=== PATIENT | male | born 1940 | race Caucasian/White ===

== ENCOUNTER 2019-06-27 01:32 | Emergency (ER) | payer BC ==
[~2019-06-27] VITALS: Ht 185.4 cm; Wt 64.9 kg
[2019-06-27 01:50] LABS: BASO % 0.2 % (0.0-1.0); HEMATOCRIT 41.6 % (42.0-52.0); HEMOGLOBIN 14.7 g/dl (13.5-17.5); LYMPH # 1.2 10^3/uL (1.5-4.5); MEAN CORPUSCULAR HEMOGLOBIN 31.1 pg (27.0-33.0); MEAN CORPUSCULAR HGB CONC 35.3 g/dl (32.0-36.5); MEAN CORPUSCULAR VOLUME 87.9 fl (80.0-96.0); MONO # 0.6 10^3/uL (0.0-0.8); MONO % 4.2 % (0.0-5.0); NEUTROPHILS % 87.2 % (36.0-66.0); PLATELET COUNT, AUTOMATED 180 10^3/uL (150-450); RED BLOOD COUNT 4.73 10^6/uL (4.30-6.10); WHITE BLOOD COUNT 14.9 10^3/uL (4.0-10.0)
--- NOTE | 2019-06-27 01:58 | REPVR ---
EXAM: CT Head Without Contrast EXAM DATE/TIME: 06/27/2019 1:39 AM CLINICAL HISTORY: 79 years old, male; Weakness, extremity; Left; Additional info: S/s possible stroke TECHNIQUE: Imaging protocol: Computed tomography images of the head without contrast. Radiation optimization: All CT scans at this facility use at least one of these dose optimization techniques: automated exposure control; mA and/or kV adjustment per patient size (includes targeted exams where dose is matched to clinical indication); or iterative reconstruction. Other technique: STROKE PROTOCOL was implemented. COMPARISON: No relevant prior studies available. FINDINGS: Brain: There are several areas of hypodense edema within the right basal ganglia, concerning for acute or subacute infarcts. Intracranial masses cannot be excluded. There is extension of hypodense edema to the right shook radiata. Mild mass-effect is visualized on the frontal horn of the right lateral ventricle. There are periventricular foci of white matter hypodensity, likely representing small vessel ischemic disease in a patient this age. The acuity of the white matter disease is indeterminate. There is mild prominence of the frontal sulci, compatible with atrophy. No acute intracranial hemorrhage is seen. Midline shift: There is no midline shift. Ventricles: See Brain Finding. Bones/joints: The calvarium demonstrates no evidence for a depressed fracture. Sinuses: Visualized sinuses are unremarkable. No fluid levels. Mastoid air cells: Minimal effusions within the left mastoid air cells. Soft tissues: Unremarkable. Vasculature: Intracranial atherosclerosis visualized. IMPRESSION: 1. There are several areas of hypodense edema within the right basal ganglia, concerning for acute or subacute infarcts. Intracranial masses cannot be excluded. There is extension of hypodense edema to the right shook radiata. Mild mass-effect is visualized on the frontal horn of the right lateral ventricle. Correlation with MRI is recommended. 2. No acute intracranial hemorrhage. 3. There are periventricular foci of white matter hypodensity, likely representing small vessel ischemic disease in a patient this age. 4. Mild atrophy. ASSESSMENT: ASPECTS ([place] Stroke Program Early CT Score) is 7. Electronically signed by: Francis Medina On 06/27/2019 01:58:07 AM
[2019-06-27 02:02] LABS: INR 1.23; PROTHROMBIN TIME 15.2 SECONDS (11.8-14.0)
[2019-06-27 02:03] LABS: PARTIAL THROMBOPLASTIN TIME 27.5 SECONDS (25.0-38.4)
[2019-06-27 02:17] LABS: BLOOD UREA NITROGEN 21 MG/DL (7-18); CALCIUM LEVEL 9.3 MG/DL (8.8-10.2); CARBON DIOXIDE LEVEL 24 MEQ/L (21-32); CHLORIDE LEVEL 107 MEQ/L (98-107); CK-MB VALUE MASS 2.6 NG/ML (<3.6); CPK CREATINE PHOSPHOKINASE 108 U/L (39-308); CREATININE FOR GFR 1.13 MG/DL (0.70-1.30); GLOMERULAR FILTRATION RATE > 60.0 (>42); GLUCOSE, FASTING 126 MG/DL (70-100); MB/CK RELATIVE INDEX 2.41 (< OR =4); POTASSIUM SERUM 4.1 MEQ/L (3.5-5.1); SODIUM LEVEL 140 MEQ/L (136-145); TROPONIN I < 0.02 NG/ML (< 0.10)
[2019-06-27 02:46] VITALS: BP 191/88
--- NOTE | 2019-06-27 08:16 | REP ---
Clinical: Acute cerebrovascular accident . Comparison: None . Findings: The mediastinum and cardiac silhouette are stable and within normal limits for portable technique. The lung oconnell are clear without acute consolidation, effusion, or pneumothorax. Skeletal structures are intact. Impression: No acute cardiopulmonary process appreciated. Electronically Signed by Yoni Rordiguez MD 06/27/2019 08:07 A
--- NOTE | 2019-06-27 08:17 | ECGEPIP ---
[facility] - ED Test Date: 2019-06-27 Pat Name: KARINA ELISE Department: Room: - Gender: Male Health Information Director: berna : 1940 Requested By: YONNY Be Order Number: [id number] Reading MD: Samanta Carrion Measurements Intervals Dumont Rate: 86 P: 86 MN: 175 QRS: 29 QRSD: 90 T: 78 QT: 368 QTc: 442 Interpretive Statements NSR PACS PVCS POSSIBLE LEFT ATRIAL ENLARGEMENT NONSPECIFIC ST & T-WAVE ABNORMALITY ABNORMAL RHYTHM ECG No prior Electronically Signed on 06-27-2019 8:17:29 EDT by Samanta Carrion
== END 2019-06-27 03:32 | disposition short-term general hospital (02) ==
LOC: M ED 01:32
DX: I63.9 Cerebral infarction, unspecified (principal); Z79.899 Other long term (current) drug therapy; Z79.01 Long term (current) use of anticoagulants

== ENCOUNTER 2019-06-30 12:18 | Inpatient (IN) | payer MEDICARE, BC ==
[~2019-06-30] VITALS: Ht 177.8 cm; Wt 64.8 kg
[2019-06-30] MEDS ORDERED: MIRALAX *UNIT DOSE* 17GM PACKET PO PRN (14:30)
[2019-06-30] MEDS ORDERED: ACETAMINOPHEN TAB 650MG DOSE (2X325MG) PO PRN (14:30)
[2019-06-30] MEDS ORDERED: traZODone 25MG PER 1/2 TABLET PO PRN (14:30)
[2019-06-30] MEDS ORDERED: SENNA 8.6 MG TAB (SENOKOT) PO PRN (14:30)
[2019-06-30] MEDS ORDERED: ASPI81CH33 PO (14:56)
[2019-06-30] MEDS ORDERED: ATOR40TA75 PO (14:56)
[2019-06-30] MEDS ORDERED: RA S8.6T3 PO (14:56)
[2019-06-30] MEDS ORDERED: ELIQ5TAB PO (14:56)
[2019-06-30] MEDS ORDERED: LOVE1INJ SC (14:56)
[2019-06-30] MEDS ORDERED: CVS50CAP PO (14:56)
[2019-06-30] MEDS ORDERED: METO1TAB32 PO (14:56)
[2019-06-30 15:00] VITALS: BP 159/79
--- NOTE | 2019-06-30 15:56 | CR.PDOC ---
General Date of Consultation: Jun 30, 2019 Referring Provider: LAUREN BRANDT MD Attending Physician: KIRA CISNEROS MD Consultation REASON FOR CONSULTATION/CHIEF COMPLAINT: Medical management. HISTORY OF PRESENT ILLNESS: Alexandra Monroy is a 79-year-old male, past medical history significant for hypertension, atrial fibrillation not on anticoagulation therapy, who presented to this facility 3 days ago on account of sudden onset left-sided flaccidity and facial droop. CT brain showed several areas of hypodensity edema within the right basal ganglia concerning for acute or subacute infarcts. There was extension of hypodensity edema to the right coronary radiata. There was also mild mass effect visualized in the frontal horn of the right lateral ventricle. Patient was emergently transferred to [facility] for further assessment and management. At that facility. MRI showed hemorrhagic conversion. Initially started on aspirin, with new findings of hemorrhagic conversion that was discontinued. Patient had a 2-D echocardiogram at that facility, which showed reduced ejection fraction of 40-45%. Left-sided weakness and flaccidity persisted for which he was discharged to this facility for rehabilitation. On assessment. Patient reports he has not been seen by a medical provider since 1987. He did not feel he had any medical problems. He denies chest pain, shortness of breath. At discharge, it was recommended patient be started on anticoagulation therapy with apixaban 5 mg twice a day 07/04/2019. ALLERGIES: Please see below. HOME MEDICATIONS: Please see below. PAST MEDICAL HISTORY: 1. Hypertension 2. Atrial fibrillation PAST SURGICAL HISTORY: 1. Tonsillectomy FAMILY HISTORY: Denies any family history SOCIAL HISTORY: Marital status and/or living arrangements: Employment: Retired Tobacco use: Denies ETOH: Occasional Illicit drug use: Denies IV drug use: Denies REVIEW OF SYSTEMS:A pertinent 10 point review of systems is completed, negative except as stated in the history of present illness PHYSICAL EXAMINATION: VITAL SIGNS: Please see below. GENERAL: NAD SKIN : Warm, dry intact HEENT: Atraumatic, normocephalic, PERRL, moist mucous membrane CARDIOVASCULAR: Regular rate and rhythm, S1S2, no JVD, no edema, distal pulses + palpable RESP: CTAB, no accessory muscle use noted ABDOMEN: BS+ non distended non tender MS: no joint deformities NEURO: Alert and oriented x 3, left side flaccid,facial droop CN2-12 grossly intact PSYCH: no anxiety or agitation, appropriate mood and affect. LABORATORY DATA: Please see below. ASSESSMENT/PLAN: 1. Acute Intracranial Hemorrhage -continue aspirin, statin, betablocker -rehabilitation per primary team 2.Atrial Fibrillation -rate controlled -continue toprol for rate control -anticoagulation therapy with Eliquis 07/04/2019 3. Cardiomyopathy of unclear etiology -with atrial fibrillation -referral to cardiology for ischemic evaluation at discharge 4. Hypertension -stable, controlled Vital Signs/I&O Vital Signs Date Time Temp Pulse Resp B/P (MAP) Pulse Ox O2 Delivery O2 Flow Rate FiO2 06/30/19 15:00 97.5 54 18 159/79 (105) 97 Allergies Coded Allergies: No Known Allergies (Unverified , 06/27/19) Home Medications Scheduled Apixaban (Eliquis) 5 Mg Tablet, 5 MG PO BID, (Reported) DUE TO BEGIN 07/04/19 Aspirin (Aspirin) 81 Mg Tab.chew, 81 MG PO DAILY, (Reported) TO STOP TAKING 07/03/19 AND BEGIN ELIQUIS 07/04/19 Atorvastatin Calcium (Atorvastatin Calcium) 40 Mg Tablet, 40 MG PO DAILY, (Reported) Docusate Sodium (Stool Softener) 50 Mg Capsule, 50 MG PO DAILY, (Reported) Enoxaparin Sodium (Lovenox) 40 Mg/0.4 Ml Syringe, 40 MG SC DAILY, (Reported) Metoprolol Succinate (Metoprolol Succinate) 25 Mg Tab.er.24h, 25 MG PO DAILY, (Reported) Sennosides (Senna Lax) 8.6 Mg Tablet, 8.6 MG PO DAILY, (Reported) CHEL HE Jun 30, 2019 15:56
[2019-06-30] MEDS: FLUoxetine 20 MG CAP PO SCH (16:07)
[2019-06-30 20:00] VITALS: BP 175/77
[2019-06-30] MEDS: SENNA 8.6 MG TAB (SENOKOT) PO SCH (20:43)
[2019-06-30] MEDS: DOCUSATE SODIUM 100 MG CAP PO SCH (20:43)
[2019-06-30] MEDS ORDERED: DOCUSATE SODIUM 100 MG CAP PO SCH (21:00)
[2019-07-01 06:00] VITALS: BP 160/72
[2019-07-01 06:35] LABS: BASO % 0.2 % (0.0-1.0); EOS # 0.2 10^3/uL (0.0-0.50); EOS % 2.2 % (0.0-3.0); HEMOGLOBIN 12.6 g/dl (13.5-17.5); LYMPH # 1.1 10^3/uL (1.5-4.5); MEAN CORPUSCULAR HEMOGLOBIN 31.3 pg (27.0-33.0); MEAN CORPUSCULAR VOLUME 87.1 fl (80.0-96.0); MONO # 0.9 10^3/uL (0.0-0.8); MONO % 10.5 % (0.0-5.0); NEUTROPHILS % 72.9 % (36.0-66.0); PLATELET COUNT, AUTOMATED 159 10^3/uL (150-450); RED BLOOD COUNT 4.02 10^6/uL (4.30-6.10); WHITE BLOOD COUNT 8.2 10^3/uL (4.0-10.0)
[2019-07-01 06:38] VITALS: BP 142/98
[2019-07-01 07:00] LABS: ALBUMIN 3.1 GM/DL (3.2-5.2); ALT/SGPT 16 U/L (12-78); BILIRUBIN,TOTAL 0.7 MG/DL (0.2-1.0); BLOOD UREA NITROGEN 19 MG/DL (7-18); CALCIUM LEVEL 8.6 MG/DL (8.8-10.2); CARBON DIOXIDE LEVEL 25 MEQ/L (21-32); CHLORIDE LEVEL 107 MEQ/L (98-107); CREATININE FOR GFR 0.85 MG/DL (0.70-1.30); GLOMERULAR FILTRATION RATE > 60.0 (>42); GLUCOSE, FASTING 98 MG/DL (70-100); POTASSIUM SERUM 3.3 MEQ/L (3.5-5.1); SODIUM LEVEL 139 MEQ/L (136-145); TOTAL PROTEIN 6.2 GM/DL (6.4-8.2)
[2019-07-01] MEDS: METOPROLOL SUCC *XL* 25MG TAB (TopROL *XL*) PO SCH (08:07)
[2019-07-01] MEDS: ASPIRIN 81 MG CHEW TABLET PO SCH (08:07)
[2019-07-01] MEDS: ATORVASTATIN 20 MG TAB PO SCH (08:07)
[2019-07-01] MEDS: DOCUSATE SODIUM 100 MG CAP PO SCH ×2 (08:07→21:00)
[2019-07-01] MEDS: FLUoxetine 20 MG CAP PO SCH (08:07)
[2019-07-01] MEDS ORDERED: POTASSIUM CHLORIDE 10 MEQ SR TABLET PO ONE (10:00)
--- NOTE | 2019-07-01 11:03 | HPEPDOC ---
Supervisor Inspection Room Note DATE OF ADMISSION: 06/30/19 SOURCE OF ADMISSION INFORMATION: patient and [facility] records CHIEF COMPLAINT: stroke HISTORY OF PRESENT ILLNESS: 79M pmh HTN and TIA who presented to [facility] ED on 06/27/19 complaining of left arm and leg weakness in addition to slurred speech. CT scan demonstrated Areas of hypoattenuation within the right basal ganglia and MRI showed, Infarct mainly in the right basal ganglia is acute/early subacute given the degree and distribution of restricted diffusion. It demonstrates petechial hemorrhages. He was admitted under the stroke services, deemed not to be a safe candidate for tPA, and was eventually started on aspirin once follow-up CT head showed stable hemorrhagic conversion. He was found to be in Afib on telemetry and underwent a DERICK which showed no shunt, PFO or thrombus with an EF of 40-45% and it was determined he would need to start Xarelto after a period of time. He was evaluated by therapy, found to have dysphagia and difficulty with mobility and ADL management, deemed medically appropriate for discharge to ARU on 06/30/19. REVIEW OF SYSTEMS: The following is a completed review of systems and has been reviewed. Review of systems otherwise unremarkable. PAIN: Patient self reports no pain EYES: No recent vision changes EARS, NOSE, & THROAT: No throat pain, +dysphagia CARDIOVASCULAR: Denies chest pain or palpitations PULMONARY: Denies shortness of breath GASTROINTESTINAL: Denies constipation/diarrhea GENITOURINARY:denies dysuria or incontinence MUSCULOSKELETAL: left sided weakness NEUROLOGICAL:left sided neglect with paresis SKIN: no rash PSYCHIATRIC: Unremarkable All other review of systems found to be negative. PAST MEDICAL HISTORY: as per HPI PAST SURGICAL HISTORY: tonsillectomy ALLERGIES: Please see below. MEDICATIONS: Please see below. SOCIAL HISTORY: quit smoking, occasional ETOH, lives with DIET: low salt mechanical ground, thins PHYSICAL EXAMINATION: VITAL SIGNS: Please see below. GENERAL: Pleasant and cooperative. No acute distress. HEENT: PERRL. Extraocular movements intact. Clear conjunctiva, left facial droop CARDIOVASCULAR: Regular rate and rhythm. No murmurs, rubs, or gallops LUNGS: Clear to auscultation bilaterally. No wheezes. No rhonchi ABDOMEN: Soft, nontender, nondistended. Positive bowel sounds. Normal active bowel sounds NEUROLOGICAL: Alert and oriented times three. Cranial nerves II through XII intact on right, impaired CN VII and XII on the left, Sensation grossly intact in all 4 extremities to light touch (-) clonus, (-) babinski EXTREMITIES: 5\5 strength right upper extremities. 4/5 left upper extremity 5\5 strength right lower extremity. 4/5 strength in left lower extremity. SKIN: intact LABORATORY DATA: Please see below. IMAGING:Imaging documentation personally reviewed by record FUNCTIONAL STATUS: Premorbid: Independent with all activities of daily life as well as mobility On Admission: Minimal assistance for ambulation, Mod-Max assist for functional transfers and bed mobility, Mod-assist for dressing, bathing, toileting. GOALS: Mod-I for ambulation with RW, stairs, transfers, uneven terrain, Mod-I for bathing, dressing, toileting, medical optimization, caregiver training. ASSESSMENT:79-year-old M with past medical history of HTN who presents status post hemorrhagic stroke PLAN: 1. Rehab: PT strengthen bilat UE, work on improving neglect and overall safety and endurance with ambulation OT_ improve strengthen in LUE for ADL management CONCRETE CURER- evaluate and treat for dysphagia and cognitive deficits 2. 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 CArdio: systolic CHF with AFib, Eliquis starting 07/04/19, medicine consulted to assist in management, will need outpatient cardio referral 4. Resp: encourage incentive spirometry 5. : monitor PVRs 6. GI ppx: protonix, optimize bowel regimen 7. DVT ppx: TEDs 8. Dispo: TBD POST ADMISSION PHYSICIAN EVALUATION: Medical and functional status: Description of medical status, medical assessment: As above. Rehabilitation diagnosis and current and prior cold morbid medical conditions as above. Risk of complications and plans to mitigate them as above. Description of functional status current status is as above. Prior status as above. Status compared to preadmission: There are no clinically significant differences between the patient's current status and the information described on the preadmission screening document. Treatment plan anticipated: Treatment plan is as described above. Required disciplines including physical therapy, occupational therapy, others as noted a yariel Intensity of services: 3 hours a day, 6 days a week. Special considerations: There are no specific special or safety considerations that would likely preclude immediate implementation of an intensive rehabilitation program or subsequently influence the plan of care. ATTESTATION: Considering all the information above, it is my best judgment that this patient requires intensive rehabilitation therapy as described above and an inpatient hospital environment due to the complexity of nursing, medical, and rehabilitation needs required by the patient. Furthermore, this patient can reasonably be expected to participate in an benefit from an inpatient rehabilitation stay with an interdisciplinary team approach to the delivery of rehabilitation care under the direction and supervision of rehabilitation physician PROGNOSIS: Excellent ESTIMATED LENGTH OF STAY:14-18 days. PROJECTED DISCHARGE DESTINATION: Home with family support and any durable medical equipment required to increase functional safety and mobility TIME SPENT COUNSELING AND COORDINATING INITIAL CARE: Greater than 70 minutes. Vital Signs Vital Sign - Last 24 Hours 06/30/19 06/30/19 07/01/19 07/01/19 15:00 20:00 06:00 06:38 Temp 97.5 97.8 97.8 Pulse 54 75 58 Resp 18 18 18 B/P (MAP) 159/79 (105) 175/77 (109) 160/72 (101) 142/98 (113) Pulse Ox 97 96 97 07/01/19 08:07 Pulse 58 B/P (MAP) 142/98 Laboratory Data CBC/BMP Laboratory Tests 07/01/19 06:11 Red Blood Count 4.02 L, Mean Corpuscular Volume 87.1, Mean Corpuscular Hemoglobin 31.3, Mean Corpuscular Hemoglobin Concent 36.0, Red Cell Distribution Width 12.1, Neutrophils (%) (Auto) 72.9 H, Lymphocytes (%) (Auto) 14.0 L, Monocytes (%) (Auto) 10.5 H, Eosinophils (%) (Auto) 2.2, Basophils (%) (Auto) 0 .2, Neutrophils # (Auto) 6.0, Lymphocytes # (Auto) 1.1 L, Monocytes # (Auto) 0.9 H, Eosinophils # (Auto) 0.2, Basophils # (Auto) 0.0, Calcium Level 8.6 L, Aspartate Amino Transf (AST/SGOT) 12, Alanine Aminotransferase (ALT/SGPT) 16, Alkaline Phosphatase 48, Total Bilirubin 0.7, Total Protein 6.2 L, Albumin 3.1 L Labs 24H Laboratory Tests 2 07/01/19 06:11: Immature Granulocyte % (Auto) 0.2, White Blood Count 8.2, Red Blood Count 4.02L, Hemoglobin 12.6L, Hematocrit 35.0L, Mean Corpuscular Volume 87.1, Mean Corpuscular Hemoglobin 31.3, Mean Corpuscular Hemoglobin Concent 36.0, Red Cell Distribution Width 12.1, Platelet Count 159, Neutrophils (%) (Auto) 72.9H, Lymphocytes (%) (Auto) 14.0L, Monocytes (%) (Auto) 10.5H, Eosinophils (%) (Auto) 2.2, Basophils (%) (Auto) 0.2, Neutrophils # (Auto) 6.0, Lymphocytes # (Auto) 1.1L, Monocytes # (Auto) 0.9H, Eosinophils # (Auto) 0.2, Basophils # (Auto) 0.0, Nucleated Red Blood Cells % (auto) 0.0, Anion Gap 7L, Glomerular Filtration Rate > 60.0, Blood Urea Nitrogen 19H, Creatinine 0.85, Sodium Level 139, Potassium Level 3.3L, Chloride Level 107, Carbon Dioxide Level 25, Calcium Level 8.6L, Aspartate Amino Transf (AST/SGOT) 12, Alanine Aminotransferase (ALT/SGPT) 16, Alkaline Phosphatase 48, Total Bilirubin 0.7, Total Protein 6.2L, Albumin 3.1L, Albumin/Globulin Ratio 1.00 Home Medications Scheduled Apixaban (Eliquis) 5 Mg Tablet, 5 MG PO BID, (Reported) DUE TO BEGIN 07/04/19 Aspirin (Aspirin) 81 Mg Tab.chew, 81 MG PO DAILY, (Reported) TO STOP TAKING 07/03/19 AND BEGIN ELIQUIS 07/04/19 Atorvastatin Calcium (Atorvastatin Calcium) 40 Mg Tablet, 40 MG PO DAILY, (Reported) Docusate Sodium (Stool Softener) 50 Mg Capsule, 50 MG PO DAILY, (Reported) Enoxaparin Sodium (Lovenox) 40 Mg/0.4 Ml Syringe, 40 MG SC DAILY, (Reported) Metoprolol Succinate (Metoprolol Succinate) 25 Mg Tab.er.24h, 25 MG PO DAILY, (Reported) Sennosides (Senna Lax) 8.6 Mg Tablet, 8.6 MG PO DAILY, (Reported) Allergies Coded Allergies: No Known Allergies (Unverified , 06/27/19) A-FIB/CHADSVASC A-FIB History Current/History of A-Fib/PAF?: Yes Current PO Anticoag Therapy: No LAUREN BRANDT MD Jul 01, 2019 11:03
--- NOTE | 2019-07-01 11:04 | IPNPDOC ---
PM&R Progress Note DATE OF SERVICE: Jul 01, 2019 Portable Trackman Progress Note Subjective: Patient reporting he did not sleep well and is open to trying a sleep aid. He believes his swallowing is getting better. REVIEW OF SYSTEMS: The following is a completed review of systems and has been reviewed. Review of systems otherwise unremarkable. PAIN: Patient self reports no pain EYES: No recent vision changes EARS, NOSE, & THROAT: No throat pain, +dysphagia CARDIOVASCULAR: Denies chest pain or palpitations PULMONARY: Denies shortness of breath GASTROINTESTINAL: Denies constipation/diarrhea GENITOURINARY:denies dysuria or incontinence MUSCULOSKELETAL: left sided weakness NEUROLOGICAL:left sided neglect with paresis SKIN: no rash PSYCHIATRIC: Unremarkable All other review of systems found to be negative. PHYSICAL EXAMINATION: VITAL SIGNS: Please see below. GENERAL: Pleasant and cooperative. No acute distress. HEENT: PERRL. Extraocular movements intact. Clear conjunctiva, left facial droop CARDIOVASCULAR: Regular rate and rhythm. No murmurs, rubs, or gallops LUNGS: Clear to auscultation bilaterally. No wheezes. No rhonchi ABDOMEN: Soft, nontender, nondistended. Positive bowel sounds. Normal active bowel sounds NEUROLOGICAL: Alert and oriented times three. Cranial nerves II through XII intact on right, impaired CN VII and XII on the left, Sensation grossly intact in all 4 extremities to light touch (-) clonus, (-) babinski EXTREMITIES: 5\5 strength right upper extremities. 4/5 left upper extremity 5\5 strength right lower extremity. 4/5 strength in left lower extremity. SKIN: intact ASSESSMENT:79-year-old M with past medical history of HTN who presents status post hemorrhagic stroke PLAN: 1. Rehab: PT strengthen bilat UE, work on improving neglect and overall safety and endurance with ambulation OT_ improve strengthen in LUE for ADL management [employer]- evaluate and treat for dysphagia and cognitive deficits 2. 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 CArdio: systolic CHF with AFib, Eliquis starting 07/04/19, medicine consulted to assist in management, will need outpatient cardio referral 4. Resp: encourage incentive spirometry 5. : monitor PVRs 6. GI ppx: protonix, optimize bowel regimen 7. DVT ppx: TEDs 8. Dispo: TBD Allergies Coded Allergies: No Known Allergies (Unverified , 06/27/19) Vital Signs Vital Signs Date Time Temp Pulse Resp B/P (MAP) Pulse Ox O2 Delivery O2 Flow Rate FiO2 07/01/19 08:07 58 142/98 07/01/19 06:00 97.8 18 97 Laboratory Data CBC/BMP Laboratory Tests 07/01/19 06:11 Red Blood Count 4.02 L, Mean Corpuscular Volume 87.1, Mean Corpuscular Hemoglobin 31.3, Mean Corpuscular Hemoglobin Concent 36.0, Red Cell Distribution Width 12.1, Neutrophils (%) (Auto) 72.9 H, Lymphocytes (%) (Auto) 14.0 L, Monocytes (%) (Auto) 10.5 H, Eosinophils (%) (Auto) 2.2, Basophils (%) (Auto) 0.2, Neutrophils # (Auto) 6.0, Lymphocytes # (Auto) 1.1 L, Monocytes # (Auto) 0.9 H, Eosinophils # (Auto) 0.2, Basophils # (Auto) 0.0, Calcium Level 8.6 L, Aspartate Amino Transf (AST/SGOT) 12, Alanine Aminotransferase (ALT/SGPT) 16, Alkaline Phosphatase 48, Total Bilirubin 0.7, Total Protein 6.2 L, Albumin 3.1 L Labs 24H Laboratory Tests 2 07/01/19 06:11: Immature Granulocyte % (Auto) 0.2, White Blood Count 8.2, Red Blood Count 4.02L, Hemoglobin 12.6L, Hematocrit 35.0L, Mean Corpuscular Volume 87.1, Mean Corpuscular Hemoglobin 31.3, Mean Corpuscular Hemoglobin Concent 36.0, Red Cell Distribution Width 12.1, Platelet Count 159, Neutrophils (%) (Auto) 72.9H, Lymphocytes (%) (Auto) 14.0L, Monocytes (%) (Auto) 10.5H, Eosinophils (%) (Auto) 2.2, Basophils (%) (Auto) 0.2, Neutrophils # (Auto) 6.0, Lymphocytes # (Auto) 1.1L, Monocytes # (Auto) 0.9H, Eosinophils # (Auto) 0.2, Basophils # (Auto) 0.0, Nucleated Red Blood Cells % (auto) 0.0, Anion Gap 7L, Glomerular Filtration Rate > 60.0, Blood Urea Nitrogen 19H, Creatinine 0.85, Sodium Level 139, Potassium Level 3.3L, Chloride Level 107, Carbon Dioxide Level 25, Calcium Level 8.6L, Aspartate Amino Transf (AST/SGOT) 12, Alanine Aminotransferase (ALT/SGPT) 16, Alkaline Phosphatase 48, Total Bilirubin 0.7, Total Protein 6.2L, Albumin 3.1L, Albumin/Globulin Ratio 1.00 Current Medications Current Medications Current Medications Medications (Trade) Dose Ordered Sig/K[place] Route PRN Reason Start Time Stop Time Status Last Admin Dose Admin Acetaminophen (Tylenol Tab) 650 mg Q4HP PRN PO fever/pain 06/30/19 14:30 Apixaban (Eliquis) 5 mg BID PO 07/04/19 09:00 Aspirin (Aspirin Chewable) 81 mg DAILY PO 07/01/19 09:00 07/03/19 23:00 07/01/19 08:07 Atorvastatin Calcium (Lipitor) 40 mg DAILY PO 07/01/19 09:00 07/01/19 08:07 Docusate Sodium (Colace) 100 mg BID PO 06/30/19 21:00 06/30/19 20:43 Docusate Sodium (Colace) 100 mg BID PO 06/30/19 21:00 UNV Fluoxetine HCl (PROzac) 20 mg DAILY PO 06/30/19 09:00 07/01/19 08:07 Home Med (Med Rec Complete!) ASDIRECTED XX 06/30/19 15:00 06/30/19 15:00 DC Metoprolol Succinate (TopROL XL) 25 mg DAILY PO 07/01/19 09:00 Polyethylene Glycol (Miralax) 1 pkt DAILYPRN PRN PO CONSTIPATION 06/30/19 14:30 Senna (Senokot) 1 tab QHS PO 06/30/19 21:00 06/30/19 20:43 Senna (Senokot) 1 tab QHSP PRN PO CONSTIPATION 06/30/19 14:30 UNV Trazodone HCl (Desyrel) 25 mg QHSP PRN PO INSOMNIA 06/30/19 14:30 07/01/19 09:49 DC Trazodone HCl (Desyrel) 50 mg QHS PO 07/01/19 21:00 LAUREN BRANDT MD Jul 01, 2019 11:04
--- NOTE | 2019-07-01 11:38 | IPNPDOC ---
Text Note Date of Service The patient was seen on 07/01/19. NOTE Alexandra Monroy is a 79-year-old male, past medical history significant for hype rtension, atrial fibrillation not on anticoagulation therapy, who presented to this facility 3 days ago on account of sudden onset left-sided flaccidity and facial droop. ... MRI showed hemorrhagic conversion of ischemic CVA. Subjective: Has no complaints today, denies chest pain, shortness of breath, palpitations, weakness. Objective GENERAL: NAD SKIN : Warm, dry intact HEENT: Atraumatic, normocephalic, PERRL, moist mucous membrane CARDIOVASCULAR: Regular rate and rhythm, S1S2, no JVD, no edema, distal pulses + palpable RESP: CTAB, no accessory muscle use noted ABDOMEN: BS+ non distended non tender MS: no joint deformities NEURO: Alert and oriented x 3, left side weakness,facial droop PSYCH: no anxiety or agitation, appropriate mood and affect. ASSESSMENT/PLAN: Acute Intracranial Hemorrhage -With left-sided weakness -continue aspirin, statin, betablocker -rehabilitation per primary team Chronic Atrial Fibrillation -rate controlled -continue Toprol for rate control -Start full anticoagulation therapy with Eliquis 07/04/2019 Cardiomyopathy of unclear etiology, EF 40-45% -Possibly tachycardia induced -with atrial fibrillation -referral to cardiology for ischemic evaluation at discharge Hypertension -stable, controlled DVT prophylaxis -We'll be started on Eliquis 07/04/2019 when low risk of extension of hemorrhagi c CVA VS,Fishbone, I+O VS, Fishbone, I+O Laboratory Tests 07/01/19 06:11 Red Blood Count 4.02 L, Mean Corpuscular Volume 87.1, Mean Corpuscular Hemoglobin 31.3, Mean Corpuscular Hemoglobin Concent 36.0, Red Cell Distribution Width 12.1, Neutrophils (%) (Auto) 72.9 H, Lymphocytes (%) (Auto) 14.0 L, Monocytes (%) (Auto) 10.5 H, Eosinophils (%) (Auto) 2.2, Basophils (%) (Auto) 0.2, Neutrophils # (Auto) 6.0, Lymphocytes # (Auto) 1.1 L, Monocytes # (Auto) 0.9 H, Eosinophils # (Auto) 0.2, Basophils # (Auto) 0.0, Calcium Level 8.6 L, Aspartate Amino Transf (AST/SGOT) 12, Alanine Aminotransferase (ALT/SGPT) 16, Alkaline Phosphatase 48, Total Bilirubin 0.7, Total Protein 6.2 L, Albumin 3.1 L Vital Signs Date Time Temp Pulse Resp B/P (MAP) Pulse Ox O2 Delivery O2 Flow Rate FiO2 07/01/19 08:07 58 142/98 07/01/19 06:00 97.8 18 97 I&O- Last 24 Hours up to 6 AM 07/01/19 06:00 Intake Total 420 ml Output Total 2130 ml Balance -1710 ml CHEL HE WIRE FRAME DIPPER Jul 01, 2019 11:38
[2019-07-01 14:00] VITALS: BP 150/82
[2019-07-01 20:00] VITALS: BP 133/63
[2019-07-01] MEDS: SENNA 8.6 MG TAB (SENOKOT) PO SCH (21:00)
[2019-07-01] MEDS: traZODone 50 MG TAB PO SCH (21:29)
[2019-07-02 06:00] VITALS: BP 159/82
[2019-07-02 07:38] LABS: BLOOD UREA NITROGEN 21 MG/DL (7-18); CARBON DIOXIDE LEVEL 26 MEQ/L (21-32); CHLORIDE LEVEL 107 MEQ/L (98-107); CREATININE FOR GFR 0.91 MG/DL (0.70-1.30); GLOMERULAR FILTRATION RATE > 60.0 (>42); GLUCOSE, FASTING 102 MG/DL (70-100); POTASSIUM SERUM 3.6 MEQ/L (3.5-5.1); SODIUM LEVEL 138 MEQ/L (136-145)
[2019-07-02] MEDS: DOCUSATE SODIUM 100 MG CAP PO SCH ×2 (09:00→21:00)
[2019-07-02] MEDS: FLUoxetine 20 MG CAP PO SCH (09:22)
[2019-07-02] MEDS: METOPROLOL SUCC *XL* 25MG TAB (TopROL *XL*) PO SCH (09:22)
[2019-07-02] MEDS: ASPIRIN 81 MG CHEW TABLET PO SCH (09:22)
[2019-07-02] MEDS: ATORVASTATIN 20 MG TAB PO SCH (09:23)
[2019-07-02 14:00] VITALS: BP 138/80
--- NOTE | 2019-07-02 14:01 | IPNPDOC ---
Text Note Date of Service The patient was seen on 07/02/19. NOTE Subjective: Has no complaints today, denies chest pain, shortness of breath, pa lpitations, weakness. Objective GENERAL: NAD SKIN : Warm, dry intact HEENT: Atraumatic, normocephalic, PERRL, moist mucous membrane CARDIOVASCULAR: Regular rate and rhythm, S1S2, no JVD, no edema, distal pulses + palpable RESP: CTAB, no accessory muscle use noted ABDOMEN: BS+ non distended non tender MS: no joint deformities NEURO: Alert and oriented x 3, left side weakness,facial droop PSYCH: no anxiety or agitation, appropriate mood and affect. ASSESSMENT/PLAN: Acute Intracranial Hemorrhage -With left-sided weakness -continue aspirin, statin, betablocker -rehabilitation per primary team Chronic Atrial Fibrillation -rate controlled -continue Toprol for rate control -Start full anticoagulation therapy with Eliquis 07/04/2019 Cardiomyopathy of unclear etiology, EF 40-45% -Possibly tachycardia induced -with atrial fibrillation -needs referral to cardiology for ischemic evaluation at discharge Hypertension -stable, controlled DVT prophylaxis -Will be started on Eliquis 07/04/2019 when low risk of extension of hemorrhagic CVA VS,Fishbone, I+O VS, Fishbone, I+O Laboratory Tests 07/02/19 06:52 Calcium Level 9.0 Vital Signs Date Time Temp Pulse Resp B/P (MAP) Pulse Ox O2 Delivery O2 Flow Rate FiO2 07/02/19 09:22 80 159/82 07/02/19 06:00 98.3 17 95 I&O- Last 24 Hours up to 6 AM 07/02/19 05:59 Intake Total 1420 ml Output Total 1050 ml Balance 370 ml CHEL HE Jul 02, 2019 14:01
[2019-07-02 20:00] VITALS: BP 160/70
[2019-07-02] MEDS: SENNA 8.6 MG TAB (SENOKOT) PO SCH (21:00)
[2019-07-02] MEDS: traZODone 50 MG TAB PO SCH (21:38)
[2019-07-03 05:53] VITALS: BP 170/89
[2019-07-03 06:38] VITALS: BP 158/84
[2019-07-03] MEDS: DOCUSATE SODIUM 100 MG CAP PO SCH ×2 (09:00→20:23)
[2019-07-03] MEDS: ASPIRIN 81 MG CHEW TABLET PO SCH (09:09)
[2019-07-03] MEDS: ATORVASTATIN 20 MG TAB PO SCH (09:09)
[2019-07-03] MEDS: METOPROLOL SUCC *XL* 25MG TAB (TopROL *XL*) PO SCH (09:10)
[2019-07-03] MEDS: FLUoxetine 20 MG CAP PO SCH (09:10)
[2019-07-03 14:00] VITALS: BP 136/84
[2019-07-03 20:00] VITALS: BP 155/76
[2019-07-03] MEDS: SENNA 8.6 MG TAB (SENOKOT) PO SCH (20:23)
[2019-07-03] MEDS: traZODone 50 MG TAB PO SCH (20:23)
[2019-07-04 06:00] VITALS: BP 159/71
--- NOTE | 2019-07-04 07:09 | IPN ---
DATE: 07/03/2019 79-year-old male in the acute rehabilitation unit having had a right basal ganglion infarct. He has history of chronic A-Fib. He is on Eliquis. Has history of hypercholesterolemia, on Atorvastatin, hypertension, on metoprolol. He is doing well. He had no complaints today. He was sitting up in a chair. Vitals have remained stable. OBJECTIVE: Blood pressure 136/84, pulse 72, respirations 18, temperature 98.3, oxygen saturation 98% on room air. GENERAL: The patient is alert and oriented times three. Slight facial droop. HEENT: Pharynx, tongue and gums pink and moist. Tongue is midline. NECK: Neck is supple without lymphadenopathy. No thyromegaly, no goiter. Carotids 2+ without bruit. CHEST: Chest is clear to auscultation without wheeze or retraction. HEART: Heart is regular. ABDOMEN: Benign. Bowel sounds positive. /RECTAL: Not done. EXTREMITIES: No cyanosis, clubbing, or edema. Peripheral pulses equal and palpable bilaterally. IMPRESSION: Acute intracranial hemorrhage with left-sided weakness. Continue aspirin, statin, beta shaan in rehabilitation. Chronic A-Fib. Continue metoprolol for rate control and Eliquis will be restarted 07/04/2019. Cardiomyopathy of unclear etiology with an ejection fraction of 40 to 45%. Will need outpatient followup cardiac evaluation at discharge. Hypertension. Stable. Deep venous thrombosis (DVT) prophylaxis. Will be restarted on his Eliquis 07/04/2019 when lower risk of extension of hemorrhage or CVA. HUSSEIN
[2019-07-04] MEDS: FLUoxetine 20 MG CAP PO SCH (08:38)
[2019-07-04] MEDS: APIXABAN 5 MG TAB (ELIQUIS) PO SCH ×2 (08:38→19:59)
[2019-07-04] MEDS: ATORVASTATIN 20 MG TAB PO SCH (08:38)
[2019-07-04] MEDS: METOPROLOL SUCC *XL* 25MG TAB (TopROL *XL*) PO SCH (08:38)
[2019-07-04] MEDS: DOCUSATE SODIUM 100 MG CAP PO SCH ×2 (08:39→19:59)
[2019-07-04 14:00] VITALS: BP 142/66
[2019-07-04] MEDS: traZODone 50 MG TAB PO SCH (19:59)
[2019-07-04] MEDS: SENNA 8.6 MG TAB (SENOKOT) PO SCH (19:59)
[2019-07-04 20:01] VITALS: BP 140/80
[2019-07-05 06:39] VITALS: BP 150/70
[2019-07-05 07:10] LABS: BASO % 0.3 % (0.0-1.0); EOS # 0.2 10^3/uL (0.0-0.50); EOS % 1.8 % (0.0-3.0); HEMATOCRIT 35.1 % (42.0-52.0); HEMOGLOBIN 12.1 g/dl (13.5-17.5); LYMPH # 1.3 10^3/uL (1.5-4.5); LYMPH % 13.2 % (24.0-44.0); MEAN CORPUSCULAR HEMOGLOBIN 30.9 pg (27.0-33.0); MEAN CORPUSCULAR HGB CONC 34.5 g/dl (32.0-36.5); MEAN CORPUSCULAR VOLUME 89.5 fl (80.0-96.0); MONO # 0.7 10^3/uL (0.0-0.8); MONO % 7.4 % (0.0-5.0); NEUTROPHILS # 7.6 10^3/uL (1.8-7.7); NEUTROPHILS % 76.9 % (36.0-66.0); PLATELET COUNT, AUTOMATED 205 10^3/uL (150-450); RED BLOOD COUNT 3.92 10^6/uL (4.30-6.10); WHITE BLOOD COUNT 9.9 10^3/uL (4.0-10.0)
[2019-07-05 07:31] LABS: BLOOD UREA NITROGEN 21 MG/DL (7-18); CALCIUM LEVEL 8.8 MG/DL (8.8-10.2); CARBON DIOXIDE LEVEL 28 MEQ/L (21-32); CHLORIDE LEVEL 106 MEQ/L (98-107); CREATININE FOR GFR 0.98 MG/DL (0.70-1.30); GLOMERULAR FILTRATION RATE > 60.0 (>42); GLUCOSE, FASTING 121 MG/DL (70-100); POTASSIUM SERUM 3.7 MEQ/L (3.5-5.1); SODIUM LEVEL 139 MEQ/L (136-145)
[2019-07-05] MEDS: DOCUSATE SODIUM 100 MG CAP PO SCH ×2 (09:00→20:30)
[2019-07-05] MEDS: FLUoxetine 20 MG CAP PO SCH (09:22)
[2019-07-05] MEDS: METOPROLOL SUCC *XL* 25MG TAB (TopROL *XL*) PO SCH (09:22)
[2019-07-05] MEDS: ATORVASTATIN 20 MG TAB PO SCH (09:23)
[2019-07-05] MEDS: APIXABAN 5 MG TAB (ELIQUIS) PO SCH ×2 (09:23→20:30)
--- NOTE | 2019-07-05 10:45 | IPNPDOC ---
Text Note Date of Service The patient was seen on 07/05/19. NOTE Subjective: reports urge incontinence, denies chills, chest pain, shortness of breath, palpitations, weakness. Objective GENERAL: NAD SKIN : Warm, dry intact HEENT: Atraumatic, normocephalic, moist mucous membrane CARDIOVASCULAR: Regular rate and rhythm, S1S2, no JVD, no edema, distal pulses + palpable RESP: CTAB, no accessory muscle use noted ABDOMEN: BS+ non distended non tender MS: no joint deformities NEURO: Alert and oriented x 3, left side weakness,facial droop PSYCH: no anxiety or agitation, appropriate mood and affect. ASSESSMENT/PLAN: Acute Intracranial Hemorrhage -With left-sided weakness -continue aspirin, statin, betablocker -rehabilitation per primary team Urge incontinence -new for patient, without symptom of infectious process -possibly due to acute stroke -start Oxybutynin, monitor response to therapy Chronic Atrial Fibrillation -rate controlled -continue Toprol for rate control -anticoagulation therapy with Eliquis Cardiomyopathy of unclear etiology, EF 40-45% -Possibly tachycardia induced -with atrial fibrillation -needs referral to cardiology for ischemic evaluation at discharge Hypertension -stable, controlled DVT prophylaxis -fully anticoagulated on Eliquis VS,Fishbone, I+O VS, Fishbone, I+O Laboratory Tests 07/05/19 06:30 Red Blood Count 3.92 L, Mean Corpuscular Volume 89.5, Mean Corpuscular Hemoglobin 30.9, Mean Corpuscular Hemoglobin Concent 34.5, Red Cell Distribution Width 12.5, Neutrophils (%) (Auto) 76.9 H, Lymphocytes (%) (Auto) 13.2 L, Monocytes (%) (Auto) 7.4 H, Eosinophils (%) (Auto) 1.8, Basophils (%) (Auto) 0.3, Neutrophils # (Auto) 7.6, Lymphocytes # (Auto) 1.3 L, Monocytes # (Auto) 0.7, Eosinophils # (Auto) 0.2, Basophils # (Auto) 0.0, Calcium Level 8.8 Vital Signs Date Time Temp Pulse Resp B/P (MAP) Pulse Ox O2 Delivery O2 Flow Rate FiO2 07/05/19 09:22 65 150/70 07/05/19 06:39 97.5 18 96 I&O- Last 24 Hours up to 6 AM 07/05/19 05:59 Intake Total 1160 ml Output Total 800 ml Balance 360 ml CHEL HE ENTERTAINMENT DIRECTOR Jul 05, 2019 10:45
[2019-07-05 11:10] VITALS: BP 150/70
[2019-07-05 14:00] VITALS: BP 159/85
[2019-07-05] MEDS: oxyBUTYnin *DITROPAN XL* 5 MG TABCR PO SCH (15:15)
[2019-07-05 20:14] VITALS: BP 160/70
[2019-07-05] MEDS: SENNA 8.6 MG TAB (SENOKOT) PO SCH (20:30)
[2019-07-05] MEDS: traZODone 50 MG TAB PO SCH (20:30)
[2019-07-06 05:53] VITALS: BP 158/74
[2019-07-06] MEDS: DOCUSATE SODIUM 100 MG CAP PO SCH ×2 (09:00→20:55)
[2019-07-06] MEDS: FLUoxetine 20 MG CAP PO SCH (10:12)
[2019-07-06] MEDS: APIXABAN 5 MG TAB (ELIQUIS) PO SCH ×2 (10:12→20:55)
[2019-07-06] MEDS: oxyBUTYnin *DITROPAN XL* 5 MG TABCR PO SCH (10:12)
[2019-07-06] MEDS: ATORVASTATIN 20 MG TAB PO SCH (10:12)
[2019-07-06] MEDS: METOPROLOL SUCC (TopROL XL) 50MG **XL** TAB PO SCH (10:15)
[2019-07-06 14:00] VITALS: BP 125/72
--- NOTE | 2019-07-06 14:14 | IPNPDOC ---
Text Note Date of Service The patient was seen on 07/06/19. NOTE Subjective: urge incontinence somewhat slightly improved today, complains of cough and congestion with nasal drip. has allergies and usually uses OTC meds. Otherwise denies chills, chest pain, shortness of breath, palpitations, weakness. Objective GENERAL: up to chair at bedside, NAD SKIN : Warm, dry intact HEENT: Atraumatic, normocephalic, moist mucous membrane CARDIOVASCULAR: irregular rate and rhythm, S1S2, no JVD, no edema, distal pulses + palpable RESP: CTAB, no accessory muscle use noted ABDOMEN: BS+ non distended non tender MS: no joint deformities NEURO: Alert and oriented x 3,,facial droop PSYCH: no anxiety or agitation, appropriate mood and affect. ASSESSMENT/PLAN: Acute Intracranial Hemorrhage -With left-sided weakness -improving with rehabilitation per primary team Sasonal allergies -with cough, cold symptoms -start loratadine -no chills or fever suggestive for infectious process -monitor and adjust management as indicated Urge incontinence -continue Oxybutynin Chronic Atrial Fibrillation -rate controlled -continue Toprol for rate control -anticoagulation therapy with Eliquis Cardiomyopathy of unclear etiology, EF 40-45% -Possibly tachycardia induced -with atrial fibrillation -needs referral to cardiology for ischemic evaluation at discharge Hypertension -stable, controlled DVT prophylaxis -fully anticoagulated on Eliquis VS,Fishbone, I+O VS, Fishbone, I+O Vital Signs Date Time Temp Pulse Resp B/P (MAP) Pulse Ox O2 Delivery O2 Flow Rate FiO2 07/06/19 10:15 70 158/74 07/06/19 05:53 98.0 18 95 I&O- Last 24 Hours up to 6 AM 07/06/19 06:00 Intake Total 720 ml Output Total 1350 ml Balance -630 ml CHEL HEP Jul 06, 2019 14:14
--- NOTE | 2019-07-06 15:15 | IPNPDOC ---
PM&R Progress Note DATE OF SERVICE: Jul 05, 2019 Biostatistics Manager Progress Note Subjective: Patient reporting he is sleeping well and would like to go home by Friday. he does not think he has any significant deficits. He also reports some urge incontinence. REVIEW OF SYSTEMS: The following is a completed review of systems and has been reviewed. Review of systems otherwise unremarkable. PAIN: Patient self reports no pain EYES: No recent vision changes EARS, NOSE, & THROAT: No throat pain, +dysphagia CARDIOVASCULAR: Denies chest pain or palpitations PULMONARY: Denies shortness of breath GASTROINTESTINAL: Denies constipation/diarrhea GENITOURINARY:denies dysuria or incontinence MUSCULOSKELETAL: left sided weakness NEUROLOGICAL:left sided neglect with paresis SKIN: no rash PSYCHIATRIC: Unremarkable All other review of systems found to be negative. PHYSICAL EXAMINATION: VITAL SIGNS: Please see below. GENERAL: Pleasant and cooperative. No acute distress. HEENT: PERRL. Extraocular movements intact. Clear conjunctiva, left facial droop CARDIOVASCULAR: Regular rate and rhythm. No murmurs, rubs, or gallops LUNGS: Clear to auscultation bilaterally. No wheezes. No rhonchi ABDOMEN: Soft, nontender, nondistended. Positive bowel sounds. Normal active bowel sounds NEUROLOGICAL: Alert and oriented times three. Cranial nerves II through XII intact on right, impaired CN VII and XII on the left, Sensation grossly intact in all 4 extremities to light touch (-) clonus, (-) babinski EXTREMITIES: 5\5 strength right upper extremities. 4/5 left upper extremity 5\5 strength right lower extremity. 4/5 strength in left lower extremity. SKIN: intact ASSESSMENT:79-year-old M with past medical history of HTN who presents status post hemorrhagic stroke PLAN: 1. 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 CArdio: systolic CHF with AFib, Eliquis starting 07/04/19, medicine consulted to assist in management, will need outpatient cardio referral 4. Resp: encourage incentive spirometry 5. : monitor PVRs, Detrol started by medicine to assist with urge incontinence 6. GI ppx: protonix, optimize bowel regimen 7. DVT ppx: TEDs 8. Dispo: 07/13/19 to home, progressing towards goals Allergies Coded Allergies: No Known Allergies (Unverified , 06/27/19) Vital Signs Vital Signs Date Time Temp Pulse Resp B/P (MAP) Pulse Ox O2 Delivery O2 Flow Rate FiO2 07/06/19 10:15 70 158/74 07/06/19 05:53 98.0 18 95 Current Medications Current Medications Current Medications Medications (Trade) Dose Ordered Sig/Kelby Route PRN Reason Start Time Stop Time Status Last Admin Dose Admin Acetaminophen (Tylenol Tab) 650 mg Q4HP PRN PO fever/pain 06/30/19 14:30 Apixaban (Eliquis) 5 mg BID PO 07/04/19 09:00 07/06/19 10:12 Aspirin (Aspirin Chewable) 81 mg DAILY PO 07/01/19 09:00 07/03/19 23:00 DC 07/03/19 09:09 Atorvastatin Calcium (Lipitor) 40 mg DAILY PO 07/01/19 09:00 07/06/19 10:12 Docusate Sodium (Colace) 100 mg BID PO 06/30/19 21:00 07/05/19 20:30 Docusate Sodium (Colace) 100 mg BID PO 06/30/19 21:00 UNV Fluoxetine HCl (PROzac) 20 mg DAILY PO 06/30/19 09:00 07/06/19 10:12 Home Med (Med Rec Complete!) ASDIRECTED XX 06/30/19 15:00 06/30/19 15:00 DC Loratadine (Claritin) 10 mg DAILY PO 07/06/19 15:00 Metoprolol Succinate (TopROL XL) 25 mg DAILY PO 07/01/19 09:00 07/06/19 09:49 DC 07/05/19 09:22 Metoprolol Succinate (TopROL XL) 50 mg DAILY PO 07/06/19 09:00 07/06/19 10:15 Oxybutynin Chloride (Ditropan Xl) 5 mg DAILY PO 07/05/19 09:00 07/06/19 10:12 Polyethylene Glycol (Miralax) 1 pkt DAILYPRN PRN PO CONSTIPATION 06/30/19 14:30 Senna (Senokot) 1 tab QHS PO 06/30/19 21:00 07/05/19 20:30 Senna (Senokot) 1 tab QHSP PRN PO CONSTIPATION 06/30/19 14:30 UNV Trazodone HCl (Desyrel) 25 mg QHSP PRN PO INSOMNIA 06/30/19 14:30 07/01/19 09:49 DC Trazodone HCl (Desyrel) 50 mg QHS PO 07/01/19 21:00 07/05/19 20:30 LAUREN BRANDT MD Jul 06, 2019 15:15
--- NOTE | 2019-07-06 15:17 | IPNPDOC ---
PM&R Progress Note DATE OF SERVICE: Jul 06, 2019 Staff Genetic Counselor Progress Note Subjective: Patient reporting he ihas developed a cough and some upper respiratory congestion. REVIEW OF SYSTEMS: The following is a completed review of systems and has been reviewed. Review of systems otherwise unremarkable. PAIN: Patient self reports no pain EYES: No recent vision changes EARS, NOSE, & THROAT: No throat pain, +dysphagia CARDIOVASCULAR: Denies chest pain or palpitations PULMONARY: Denies shortness of breath GASTROINTESTINAL: Denies constipation/diarrhea GENITOURINARY:denies dysuria or incontinence MUSCULOSKELETAL: left sided weakness NEUROLOGICAL:left sided neglect with paresis SKIN: no rash PSYCHIATRIC: Unremarkable All other review of systems found to be negative. PHYSICAL EXAMINATION: VITAL SIGNS: Please see below. GENERAL: Pleasant and cooperative. No acute distress. HEENT: PERRL. Extraocular movements intact. Clear conjunctiva, left facial droop CARDIOVASCULAR: Regular rate and rhythm. No murmurs, rubs, or gallops LUNGS: Clear to auscultation bilaterally. No wheezes. No rhonchi ABDOMEN: Soft, nontender, nondistended. Positive bowel sounds. Normal active bowel sounds NEUROLOGICAL: Alert and oriented times three. Cranial nerves II through XII intact on right, impaired CN VII and XII on the left, Sensation grossly intact in all 4 extremities to light touch (-) clonus, (-) babinski EXTREMITIES: 5\5 strength right upper extremities. 4/5 left upper extremity 5\5 strength right lower extremity. 4/5 strength in left lower extremity. SKIN: intact ASSESSMENT:79-year-old M with past medical history of HTN who presents status post hemorrhagic stroke PLAN: 1. Rehab: PT strengthen bilat UE, work on improving neglect and overall safety and endurance with ambulation OT_ improve strengthen in LUE for ADL management MARKETING ANALYTICS LEAD- evaluate and treat for dysphagia and cognitive deficits, level 3, goal to upgrade to regular diet 2. 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 CArdio: systolic CHF with AFib, Eliquis starting 07/04/19, medicine consulted to assist in management, will need outpatient cardio referral 4. Resp: encourage incentive spirometry, antihistamine and flonase started for sinus congestion/cough 5. : monitor PVRs, Detrol started by medicine to assist with urge incontinence 6. GI ppx: protonix, optimize bowel regimen 7. DVT ppx: TEDs 8. Dispo: 07/13/19 to home, progressing towards goals Allergies Coded Allergies: No Known Allergies (Unverified , 06/27/19) Vital Signs Vital Signs Date Time Temp Pulse Resp B/P (MAP) Pulse Ox O2 Delivery O2 Flow Rate FiO2 07/06/19 10:15 70 158/74 07/06/19 05:53 98.0 18 95 Current Medications Current Medications Current Medications Medications (Trade) Dose Ordered Sig/K[place] Route PRN Reason Start Time Stop Time Status Last Admin Dose Admin Acetaminophen (Tylenol Tab) 650 mg Q4HP PRN PO fever/pain 06/30/19 14:30 Apixaban (Eliquis) 5 mg BID PO 07/04/19 09:00 07/06/19 10:12 Aspirin (Aspirin Chewable) 81 mg DAILY PO 07/01/19 09:00 07/03/19 23:00 DC 07/03/19 09:09 Atorvastatin Calcium (Lipitor) 40 mg DAILY PO 07/01/19 09:00 07/06/19 10:12 Docusate Sodium (Colace) 100 mg BID PO 06/30/19 21:00 07/05/19 20:30 Docusate Sodium (Colace) 100 mg BID PO 06/30/19 21:00 UNV Fluoxetine HCl (PROzac) 20 mg DAILY PO 06/30/19 09:00 07/06/19 10:12 Home Med (Med Rec Complete!) ASDIRECTED XX 06/30/19 15:00 06/30/19 15:00 DC Loratadine (Claritin) 10 mg DAILY PO 07/06/19 15:00 Metoprolol Succinate (TopROL XL) 25 mg DAILY PO 07/01/19 09:00 07/06/19 09:49 DC 07/05/19 09:22 Metoprolol Succinate (TopROL XL) 50 mg DAILY PO 07/06/19 09:00 07/06/19 10:15 Oxybutynin Chloride (Ditropan Xl) 5 mg DAILY PO 07/05/19 09:00 07/06/19 10:12 Polyethylene Glycol (Miralax) 1 pkt DAILYPRN PRN PO CONSTIPATION 06/30/19 14:30 Senna (Senokot) 1 tab QHS PO 06/30/19 21:00 07/05/19 20:30 Senna (Senokot) 1 tab QHSP PRN PO CONSTIPATION 06/30/19 14:30 UNV Trazodone HCl (Desyrel) 25 mg QHSP PRN PO INSOMNIA 06/30/19 14:30 07/01/19 09:49 DC Trazodone HCl (Desyrel) 50 mg QHS PO 07/01/19 21:00 07/05/19 20:30 LAUREN BRANDT MD Jul 06, 2019 15:17
[2019-07-06] MEDS: LORATADINE 10 MG TAB PO SCH (15:29)
[2019-07-06] MEDS: guaiFENesin 200 MG TAB PO SCH ×2 (17:29→20:55)
--- NOTE | 2019-07-06 17:51 | REP ---
REASON: Left lower lobe rhonchi. PRIOR EXAMINATION: 06/27/2019, a portable exam. FINDINGS: The superior mediastinal structures are midline. The cardiac silhouette is unremarkable in size, shape, and position. The diaphragmatic surfaces of the lungs are regular, and the costophrenic angles are clear. The pulmonary oconnell are clear. The imaged osseous structures are intact. IMPRESSION: There is no acute cardiopulmonary disease. Electronically Signed by Anibal Petersen DO 07/07/2019 09:31 A
[2019-07-06 20:00] VITALS: BP 129/67
[2019-07-06] MEDS: SENNA 8.6 MG TAB (SENOKOT) PO SCH (20:55)
[2019-07-06] MEDS: traZODone 50 MG TAB PO SCH (20:55)
[2019-07-06] MEDS: FLUTICASONE PROP 0.05% NASAL SPRAY 16 GM (FLONASE) NARES SCH (20:59)
[2019-07-06] MEDS: IPRATROPIUM 0.5MG/ALBUTEROL 2.5MG INH SOL UD 3ML (DUONEB)(J7620) NEB SCH (21:00)
[2019-07-07 06:00] VITALS: BP 130/67
[2019-07-07] MEDS: FLUTICASONE PROP 0.05% NASAL SPRAY 16 GM (FLONASE) NARES SCH ×2 (08:44→20:38)
[2019-07-07] MEDS: FLUoxetine 20 MG CAP PO SCH (08:44)
[2019-07-07] MEDS: LORATADINE 10 MG TAB PO SCH (08:44)
[2019-07-07] MEDS: guaiFENesin 200 MG TAB PO SCH ×3 (08:44→20:37)
[2019-07-07] MEDS: oxyBUTYnin *DITROPAN XL* 5 MG TABCR PO SCH (08:44)
[2019-07-07] MEDS: APIXABAN 5 MG TAB (ELIQUIS) PO SCH ×2 (08:44→20:38)
[2019-07-07] MEDS: ATORVASTATIN 20 MG TAB PO SCH (08:44)
[2019-07-07] MEDS: METOPROLOL SUCC (TopROL XL) 50MG **XL** TAB PO SCH (08:46)
[2019-07-07] MEDS: DOCUSATE SODIUM 100 MG CAP PO SCH ×2 (09:00→20:38)
[2019-07-07] MEDS: IPRATROPIUM 0.5MG/ALBUTEROL 2.5MG INH SOL UD 3ML (DUONEB)(J7620) NEB SCH ×3 (09:00→21:00)
[2019-07-07 14:00] VITALS: BP 128/67
--- NOTE | 2019-07-07 14:15 | IPNPDOC ---
PM&R Progress Note DATE OF SERVICE: Jul 07, 2019 Terrazzo Worker Progress Note Subjective: Patient reporting he still has cough with minimal production and is eager for room privileges. REVIEW OF SYSTEMS: The following is a completed review of systems and has been reviewed. Review of systems otherwise unremarkable. PAIN: Patient self reports no pain EYES: No recent vision changes EARS, NOSE, & THROAT: No throat pain, +dysphagia (improving) CARDIOVASCULAR: Denies chest pain or palpitations PULMONARY: Denies shortness of breath GASTROINTESTINAL: Denies constipation/diarrhea GENITOURINARY:denies dysuria or incontinence MUSCULOSKELETAL: left sided weakness NEUROLOGICAL:left sided neglect with paresis SKIN: no rash PSYCHIATRIC: Unremarkable All other review of systems found to be negative. PHYSICAL EXAMINATION: VITAL SIGNS: Please see below. GENERAL: Pleasant and cooperative. No acute distress. HEENT: PERRL. Extraocular movements intact. Clear conjunctiva, left facial droop CARDIOVASCULAR: Regular rate and rhythm. No murmurs, rubs, or gallops LUNGS: +scattered rhonchi ABDOMEN: Soft, nontender, nondistended. Positive bowel sounds. Normal active bowel sounds NEUROLOGICAL: Alert and oriented times three. Cranial nerves II through XII intact on right, impaired CN VII and XII on the left, Sensation grossly intact in all 4 extremities to light touch (-) clonus, (-) babinski EXTREMITIES: 5\5 strength right upper extremities. 4/5 left upper extremity 5\5 strength right lower extremity. 4/5 strength in left lower extremity. SKIN: intact ASSESSMENT:79-year-old M with past medical history of HTN who presents status post hemorrhagic stroke PLAN: 1. 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 CArdio: systolic CHF with AFib, Eliquis starting 07/04/19, medicine consulted to assist in management, will need outpatient cardio referral 4. Resp: encourage incentive spirometry, antihistamine and flonase started for sinus congestion/cough, guaifenesin ordered as well -CXR 07/06/19 negative, however has leukocytosis with persistent cough with rhonchi, clinically suspect pneumonia, will start doxycycline and monitor 5. : monitor PVRs, Detrol started by medicine to assist with urge incontinence 6. GI ppx: protonix, optimize bowel regimen 7. DVT ppx: TEDs 8. Dispo: 07/09/19 to home, progressing towards goals Allergies Coded Allergies: No Known Allergies (Unverified , 06/27/19) Vital Signs Vital Signs Date Time Temp Pulse Resp B/P (MAP) Pulse Ox O2 Delivery O2 Flow Rate FiO2 07/07/19 08:46 63 137/70 07/07/19 06:00 97.2 18 93 Laboratory Data CBC/BMP Labs 24H Laboratory Tests 2 07/07/19 13:10: Current Medications Current Medications Current Medications Medications (Trade) Dose Ordered Sig/Kelby Route PRN Reason Start Time Stop Time Status Last Admin Dose Admin Acetaminophen (Tylenol Tab) 650 mg Q4HP PRN PO fever/pain 06/30/19 14:30 07/06/19 20:55 Albuterol/ Ipratropium (Duoneb (Ipr 0.5mg/Alb 2.5mg)) 3 ml TID NEB 07/06/19 16:00 Apixaban (Eliquis) 5 mg BID PO 07/04/19 09:00 07/07/19 08:44 Aspirin (Aspirin Chewable) 81 mg DAILY PO 07/01/19 09:00 07/03/19 23:00 DC 07/03/19 09:09 Atorvastatin Calcium (Lipitor) 40 mg DAILY PO 07/01/19 09:00 07/07/19 08:44 Docusate Sodium (Colace) 100 mg BID PO 06/30/19 21:00 07/06/19 20:55 Docusate Sodium (Colace) 100 mg BID PO 06/30/19 21:00 UNV Fluoxetine HCl (PROzac) 20 mg DAILY PO 06/30/19 09:00 07/07/19 08:44 Fluticasone Propionate (Flonase 0.05% Nasal [place]) 1 spray BID NARES 07/06/19 21:00 07/07/19 08:44 Guaifenesin (Robitussin Tab) 400 mg TID PO 07/06/19 16:00 07/07/19 08:44 Home Med (Med Rec Complete!) ASDIRECTED XX 06/30/19 15:00 06/30/19 15:00 DC Loratadine (Claritin) 10 mg DAILY PO 07/06/19 15:00 07/07/19 08:44 Metoprolol Succinate (TopROL XL) 25 mg DAILY PO 07/01/19 09:00 07/06/19 09:49 DC 07/05/19 09:22 Metoprolol Succinate (TopROL XL) 50 mg DAILY PO 07/06/19 09:00 07/07/19 08:46 Oxybutynin Chloride (Ditropan Xl) 5 mg DAILY PO 07/05/19 09:00 07/07/19 08:44 Polyethylene Glycol (Miralax) 1 pkt DAILYPRN PRN PO CONSTIPATION 06/30/19 14:30 Senna (Senokot) 1 tab QHS PO 06/30/19 21:00 07/06/19 20:55 Senna (Senokot) 1 tab QHSP PRN PO CONSTIPATION 06/30/19 14:30 UNV Trazodone HCl (Desyrel) 25 mg QHSP PRN PO INSOMNIA 06/30/19 14:30 07/01/19 09:49 DC Trazodone HCl (Desyrel) 50 mg QHS PO 07/01/19 21:00 07/06/19 20:55 LAUREN BRANDT MD Jul 07, 2019 14:15
[2019-07-07] MEDS ORDERED: FLUO20CA19 PO (14:22)
[2019-07-07] MEDS ORDERED: ELIQ5TAB PO (14:22)
[2019-07-07] MEDS ORDERED: METO1TAB32 PO (14:22)
[2019-07-07] MEDS ORDERED: ATOR40TA75 PO (14:22)
[2019-07-07] MEDS ORDERED: DITR5TAB PO (14:22)
[2019-07-07 14:42] LABS: BLOOD UREA NITROGEN 20 MG/DL (7-18); CALCIUM LEVEL 8.9 MG/DL (8.8-10.2); CARBON DIOXIDE LEVEL 30 MEQ/L (21-32); CHLORIDE LEVEL 99 MEQ/L (98-107); CREATININE FOR GFR 1.14 MG/DL (0.70-1.30); GLOMERULAR FILTRATION RATE > 60.0 (>42); GLUCOSE, FASTING 104 MG/DL (70-100); POTASSIUM SERUM 4.3 MEQ/L (3.5-5.1); SODIUM LEVEL 136 MEQ/L (136-145)
[2019-07-07 15:02] LABS: BASO % 0.2 % (0.0-1.0); EOS # 0.1 10^3/uL (0.0-0.50); EOS % 0.6 % (0.0-3.0); HEMATOCRIT 38.5 % (42.0-52.0); LYMPH # 0.9 10^3/uL (1.5-4.5); LYMPH % 7.8 % (24.0-44.0); MEAN CORPUSCULAR HGB CONC 33.8 g/dl (32.0-36.5); MEAN CORPUSCULAR VOLUME 88.9 fl (80.0-96.0); MONO % 8.1 % (0.0-5.0); NEUTROPHILS % 82.8 % (36.0-66.0); PLATELET COUNT, AUTOMATED 255 10^3/uL (150-450); RED BLOOD COUNT 4.33 10^6/uL (4.30-6.10)
--- NOTE | 2019-07-07 15:17 | IPNPDOC ---
Text Note Date of Service The patient was seen on 07/07/19. NOTE Subjective: Has noticed marked improvement in urge incontinence. Cough and congestion unchanged with loratadine use. Thinks we can give it one more day before trying other things. denies SOB or CP Objective GENERAL: up to chair at bedside, NAD SKIN : Warm, dry intact HEENT: Atraumatic, normocephalic, moist mucous membrane CARDIOVASCULAR: irregular rate and rhythm, S1S2, no JVD, no edema, distal pulses + palpable RESP: CTAB, no accessory muscle use noted ABDOMEN: BS+ non distended non tender MS: no joint deformities NEURO: Alert and oriented x 3,,facial droop PSYCH: no anxiety or agitation, appropriate mood and affect. ASSESSMENT/PLAN: Acute Intracranial Hemorrhage -With left-sided weakness -improving with rehabilitation per primary team Sasonal allergies -continue loratadine, flonase -no indication for antibiotic therapy Urge incontinence -continue Oxybutynin Chronic Atrial Fibrillation -rate controlled, -continue Toprol for rate control -anticoagulation therapy with Eliquis Cardiomyopathy of unclear etiology, EF 40-45% - referral to cardiology for ischemic evaluation at discharge Hypertension -stable, controlled DVT prophylaxis -fully anticoagulated on Eliquis VS,Fishbone, I+O VS, Fishbone, I+O Laboratory Tests 07/07/19 13:10 Red Blood Count 4.33, Mean Corpuscular Volume 88.9, Mean Corpuscular Hemoglobin 30.0, Mean Corpuscular Hemoglobin Concent 33.8, Red Cell Distribution Width 12.4, Neutrophils (%) (Auto) 82.8 H, Lymphocytes (%) (Auto) 7.8 L, Monocytes (%) (Auto) 8.1 H, Eosinophils (%) (Auto) 0.6, Basophils (%) (Auto) 0.2, Neutrophils # (Auto) 10.0 H, Lymphocytes # (Auto) 0.9 L, Monocytes # (Auto) 1.0 H, Eosinophils # (Auto) 0.1, Basophils # (Auto) 0.0, Calcium Level 8.9 Vital Signs Date Time Temp Pulse Resp B/P (MAP) Pulse Ox O2 Delivery O2 Flow Rate FiO2 07/07/19 14:00 97.9 70 16 128/67 (87) 99 I&O- Last 24 Hours up to 6 AM 07/07/19 05:59 Intake Total 1440 ml Output Total 1600 ml Balance -160 ml [facility] Jul 07, 2019 15:17
[2019-07-07 20:03] VITALS: BP 153/77
[2019-07-07] MEDS: SENNA 8.6 MG TAB (SENOKOT) PO SCH (20:38)
[2019-07-07] MEDS: traZODone 50 MG TAB PO SCH (20:38)
[2019-07-07] MEDS: DOXYCYCLINE HYCLATE 100 MG TAB PO SCH (20:38)
[2019-07-08 06:00] VITALS: BP 131/77
[2019-07-08] MEDS: DOCUSATE SODIUM 100 MG CAP PO SCH ×2 (08:45→20:16)
[2019-07-08] MEDS: APIXABAN 5 MG TAB (ELIQUIS) PO SCH ×2 (08:45→20:16)
[2019-07-08] MEDS: ATORVASTATIN 20 MG TAB PO SCH (08:45)
[2019-07-08] MEDS: oxyBUTYnin *DITROPAN XL* 5 MG TABCR PO SCH (08:45)
[2019-07-08] MEDS: FLUoxetine 20 MG CAP PO SCH (08:45)
[2019-07-08] MEDS: guaiFENesin 200 MG TAB PO SCH ×3 (08:45→20:17)
[2019-07-08] MEDS: DOXYCYCLINE HYCLATE 100 MG TAB PO SCH ×2 (08:45→20:16)
[2019-07-08] MEDS: LORATADINE 10 MG TAB PO SCH (08:45)
[2019-07-08] MEDS: METOPROLOL SUCC (TopROL XL) 50MG **XL** TAB PO SCH (08:46)
[2019-07-08] MEDS: FLUTICASONE PROP 0.05% NASAL SPRAY 16 GM (FLONASE) NARES SCH ×2 (08:46→20:17)
[2019-07-08] MEDS: IPRATROPIUM 0.5MG/ALBUTEROL 2.5MG INH SOL UD 3ML (DUONEB)(J7620) NEB SCH ×3 (09:00→21:00)
[2019-07-08 11:18] LABS: BASO % 0.2 % (0.0-1.0); EOS % 0.3 % (0.0-3.0); HEMATOCRIT 34.8 % (42.0-52.0); HEMOGLOBIN 12.1 g/dl (13.5-17.5); LYMPH # 0.9 10^3/uL (1.5-4.5); LYMPH % 7.6 % (24.0-44.0); MEAN CORPUSCULAR HEMOGLOBIN 30.3 pg (27.0-33.0); MEAN CORPUSCULAR HGB CONC 34.8 g/dl (32.0-36.5); MEAN CORPUSCULAR VOLUME 87.2 fl (80.0-96.0); MONO % 8.3 % (0.0-5.0); NEUTROPHILS # 10.3 10^3/uL (1.8-7.7); NEUTROPHILS % 83.1 % (36.0-66.0); PLATELET COUNT, AUTOMATED 233 10^3/uL (150-450); RED BLOOD COUNT 3.99 10^6/uL (4.30-6.10); WHITE BLOOD COUNT 12.3 10^3/uL (4.0-10.0)
[2019-07-08 11:41] LABS: BLOOD UREA NITROGEN 21 MG/DL (7-18); CALCIUM LEVEL 8.6 MG/DL (8.8-10.2); CARBON DIOXIDE LEVEL 29 MEQ/L (21-32); CHLORIDE LEVEL 102 MEQ/L (98-107); CREATININE FOR GFR 1.15 MG/DL (0.70-1.30); GLOMERULAR FILTRATION RATE > 60.0 (>42); GLUCOSE, FASTING 122 MG/DL (70-100); SODIUM LEVEL 138 MEQ/L (136-145)
--- NOTE | 2019-07-08 12:06 | IPNPDOC ---
PM&R Progress Note DATE OF SERVICE: Jul 08, 2019 Project Control Analyst Progress Note Subjective: Patient reporting his cough is slightly better, states he is susceptible to colds and would like to go home tomorrow. REVIEW OF SYSTEMS: The following is a completed review of systems and has been reviewed. Review of systems otherwise unremarkable. PAIN: Patient self reports no pain EYES: No recent vision changes EARS, NOSE, & THROAT: No throat pain, +dysphagia (improving) CARDIOVASCULAR: Denies chest pain or palpitations PULMONARY: Denies shortness of breath GASTROINTESTINAL: Denies constipation/diarrhea GENITOURINARY:denies dysuria or incontinence MUSCULOSKELETAL: left sided weakness NEUROLOGICAL:left sided neglect with paresis SKIN: no rash PSYCHIATRIC: Unremarkable All other review of systems found to be negative. PHYSICAL EXAMINATION: VITAL SIGNS: Please see below. GENERAL: Pleasant and cooperative. No acute distress. HEENT: PERRL. Extraocular movements intact. Clear conjunctiva, left facial droop CARDIOVASCULAR: Regular rate and rhythm. No murmurs, rubs, or gallops LUNGS: +left lower lung filed rhonchi otherwise clear ABDOMEN: Soft, nontender, nondistended. Positive bowel sounds. Normal active bowel sounds NEUROLOGICAL: Alert and oriented times three. Cranial nerves II through XII intact on right, impaired CN VII and XII on the left, Sensation grossly intact in all 4 extremities to light touch (-) clonus, (-) babinski EXTREMITIES: 5\5 strength right upper extremities. 4/5 left upper extremity 5\5 strength right lower extremity. 4/5 strength in left lower extremity. SKIN: intact ASSESSMENT:79-year-old M with past medical history of HTN who presents status post hemorrhagic stroke PLAN: 1. Rehab: PT strengthen bilat UE, work on improving neglect and overall safety and endurance with ambulation- room privileges OT_ improve strengthen in LUE for ADL management VIDEO PHOTOGRAPHER- evaluate and treat for dysphagia and cognitive deficits, level 3, goal to upgrade to regular diet 2. 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 CArdio: systolic CHF with AFib, Eliquis starting 07/04/19, medicine consulted to assist in management, will need outpatient cardio referral 4. Resp: encourage incentive spirometry, antihistamine and flonase started for sinus congestion/cough, guaifenesin ordered as well -CXR 07/06/19 negative, however has leukocytosis with persistent cough with rhonchi, clinically suspect pneumonia, c/u doxycycline and monitor, patient not ill appearing and participating therapy, ok to d/c home tomorrow if leukocytosis improves 5. : monitor PVRs, Detrol started by medicine to assist with urge incontinence 6. GI ppx: protonix, optimize bowel regimen 7. DVT ppx: TEDs 8. Dispo: 07/09/19 to home, progressing towards goals Allergies Coded Allergies: No Known Allergies (Unverified , 06/27/19) Vital Signs Vital Signs Date Time Temp Pulse Resp B/P (MAP) Pulse Ox O2 Delivery O2 Flow Rate FiO2 07/08/19 06:00 98.1 69 18 131/77 (95) 96 Laboratory Data CBC/BMP Laboratory Tests 07/07/19 13:10 Red Blood Count 4.33, Mean Corpuscular Volume 88.9, Mean Corpuscular Hemoglobin 30.0, Mean Corpuscular Hemoglobin Concent 33.8, Red Cell Distribution Width 12.4, Neutrophils (%) (Auto) 82.8 H, Lymphocytes (%) (Auto) 7.8 L, Monocytes (%) (Auto) 8.1 H, Eosinophils (%) (Auto) 0.6, Basophils (%) (Auto) 0.2, Neutrophils # (Auto) 10.0 H, Lymphocytes # (Auto) 0.9 L, Monocytes # (Auto) 1.0 H, Eosinophils # (Auto) 0.1, Basophils # (Auto) 0.0, Calcium Level 8.9 07/08/19 10:38 Red Blood Count 3.99 L, Mean Corpuscular Volume 87.2, Mean Corpuscular Hemoglobin 30.3, Mean Corpuscular Hemoglobin Concent 34.8, Red Cell Distribution Width 12.4, Neutrophils (%) (Auto) 83.1 H, Lymphocytes (%) (Auto) 7.6 L, Monocytes (%) (Auto) 8.3 H, Eosinophils (%) (Auto) 0.3, Basophils (%) (Auto) 0.2, Neutrophils # (Auto) 10.3 H, Lymphocytes # (Auto) 0.9 L, Monocytes # (Auto) 1.0 H, Eosinophils # (Auto) 0.0, Basophils # (Auto) 0.0, Calcium Level 8.6 L Labs 24H Laboratory Tests 2 07/07/19 13:10: Immature Granulocyte % (Auto) 0.5, White Blood Count 12.0H, Red Blood Count 4.33, Hemoglobin 13.0L, Hematocrit 38.5L, Mean Corpuscular Volume 88.9, Mean Corpuscular Hemoglobin 30.0, Mean Corpuscular Hemoglobin Concent 33.8, Red Cell Distribution Width 12.4, Platelet Count 255, Neutrophils (%) (Auto) 82.8H, Lymphocytes (%) (Auto) 7.8L, Monocytes (%) (Auto) 8.1H, Eosinophils (%) (Auto) 0.6, Basophils (%) (Auto) 0.2, Neutrophils # (Auto) 10.0H, Lymphocytes # (Auto) 0.9L, Monocytes # (Auto) 1.0H, Eosinophils # (Auto) 0.1, Basophils # (Auto) 0.0, Nucleated Red Blood Cells % (auto) 0.0, Anion Gap 7L, Glomerular Filtration Rate > 60.0, Blood Urea Nitrogen 20H, Creatinine 1.14, Sodium Level 136, Potassium Level 4.3, Chloride Level 99, Carbon Dioxide Level 30, Calcium Level 8.9 07/08/19 10:38: Immature Granulocyte % (Auto) 0.5, White Blood Count 12.3H, Red Blood Count 3.99L, Hemoglobin 12.1L, Hematocrit 34.8L, Mean Corpuscular Volume 87.2, Mean Corpuscular Hemoglobin 30.3, Mean Corpuscular Hemoglobin Concent 34.8, Red Cell Distribution Width 12.4, Platelet Count 233, Neutrophils (%) (Auto) 83.1H, Lymphocytes (%) (Auto) 7.6L, Monocytes (%) (Auto) 8.3H, Eosinophils (%) (Auto) 0.3, Basophils (%) (Auto) 0.2, Neutrophils # (Auto) 10.3H, Lymphocytes # (Auto) 0.9L, Monocytes # (Auto) 1.0H, Eosinophils # (Auto) 0.0, Basophils # (Auto) 0.0, Nucleated Red Blood Cells % (auto) 0.0, Anion Gap 7L, Glomerular Filtration Rate > 60.0, Blood Urea Nitrogen 21H, Creatinine 1.15, Sodium Level 138, Potassium Level 4.0, Chloride Level 102, Carbon Dioxide Level 29, Calcium Level 8.6L Current Medications Current Medications Current Medications Medications (Trade) Dose Ordered Sig/[place] Route PRN Reason Start Time Stop Time Status Last Admin Dose Admin Acetaminophen (Tylenol Tab) 650 mg Q4HP PRN PO fever/pain 06/30/19 14:30 07/06/19 20:55 Albuterol/ Ipratropium (Duoneb (Ipr 0.5mg/Alb 2.5mg)) 3 ml TID NEB 07/06/19 16:00 Apixaban (Eliquis) 5 mg BID PO 07/04/19 09:00 07/08/19 08:45 Aspirin (Aspirin Chewable) 81 mg DAILY PO 07/01/19 09:00 07/03/19 23:00 DC 07/03/19 09:09 Atorvastatin Calcium (Lipitor) 40 mg DAILY PO 07/01/19 09:00 07/08/19 08:45 Docusate Sodium (Colace) 100 mg BID PO 06/30/19 21:00 07/08/19 08:45 Docusate Sodium (Colace) 100 mg BID PO 06/30/19 21:00 UNV Doxycycline Hyclate (Vibramycin) 100 mg BID PO 07/07/19 21:00 07/14/19 09:01 07/08/19 08:45 Fluoxetine HCl (PROzac) 20 mg DAILY PO 06/30/19 09:00 07/08/19 08:45 Fluticasone Propionate (Flonase 0.05% Nasal [place]) 1 spray BID NARES 07/06/19 21:00 07/08/19 08:46 Guaifenesin (Robitussin Tab) 400 mg TID PO 07/06/19 16:00 07/08/19 08:45 Home Med (Med Rec Complete!) ASDIRECTED XX 06/30/19 15:00 06/30/19 15:00 DC Loratadine (Claritin) 10 mg DAILY PO 07/06/19 15:00 07/08/19 08:45 Metoprolol Succinate (TopROL XL) 25 mg DAILY PO 8/8/19 09:00 07/06/19 09:49 DC 07/05/19 09:22 Metoprolol Succinate (TopROL XL) 50 mg DAILY PO 07/06/19 09:00 07/08/19 08:46 Oxybutynin Chloride (Ditropan Xl) 5 mg DAILY PO 07/05/19 09:00 07/08/19 08:45 Polyethylene Glycol (Miralax) 1 pkt DAILYPRN PRN PO CONSTIPATION 06/30/19 14:30 Senna (Senokot) 1 tab QHS PO 06/30/19 21:00 07/07/19 20:38 Senna (Senokot) 1 tab QHSP PRN PO CONSTIPATION 06/30/19 14:30 UNV Trazodone HCl (Desyrel) 25 mg QHSP PRN PO INSOMNIA 06/30/19 14:30 07/01/19 09:49 DC Trazodone HCl (Desyrel) 50 mg QHS PO 07/01/19 21:00 07/07/19 20:38 LAUREN BRANDT MD Jul 08, 2019 12:06
[2019-07-08 14:00] VITALS: BP 139/62
--- NOTE | 2019-07-08 15:52 | IPNPDOC ---
Text Note Date of Service The patient was seen on 07/08/19. NOTE Subjective: Urge incontinence is ok. Cough and congestion still persisting. CXR was Objective GENERAL: up to chair at bedside, NAD SKIN : Warm, dry intact HEENT: Atraumatic, normocephalic, moist mucous membrane CARDIOVASCULAR: irregular rate and rhythm, S1S2, no JVD, no edema, distal pulses + palpable RESP: CTAB, no accessory muscle use noted ABDOMEN: BS+ non distended non tender MS: no joint deformities NEURO: Alert and oriented x 3,,facial droop PSYCH: no anxiety or agitation, appropriate mood and affect. ASSESSMENT/PLAN: Acute Intracranial Hemorrhage -With left-sided weakness -improving with rehabilitation per primary team Cough/Congestion -continue antibiotic therapy with Doxycyline -continue loratadine, Flonase -no indication for antibiotic therapy -one time dose lasix for possible congestion due to failure Urge incontinence -continue Oxybutynin Chronic Atrial Fibrillation -rate controlled, -continue Toprol -anticoagulation therapy with Eliquis Cardiomyopathy of unclear etiology, EF 40-45% - referral to cardiology for ischemic evaluation at discharge Hypertension -stable, controlled DVT prophylaxis -fully anticoagulated on Eliquis VS,Fishbone, I+O VS, Fishbone, I+O Laboratory Tests 07/08/19 10:38 Red Blood Count 3.99 L, Mean Corpuscular Volume 87.2, Mean Corpuscular Hemoglobin 30.3, Mean Corpuscular Hemoglobin Concent 34.8, Red Cell Distribution Width 12.4, Neutrophils (%) (Auto) 83.1 H, Lymphocytes (%) (Auto) 7.6 L, Monocytes (%) (Auto) 8.3 H, Eosinophils (%) (Auto) 0.3, Basophils (%) (Auto) 0.2, Neutrophils # (Auto) 10.3 H, Lymphocytes # (Auto) 0.9 L, Monocytes # (Auto) 1.0 H, Eosinophils # (Auto) 0.0, Basophils # (Auto) 0.0, Calcium Level 8.6 L Vital Signs Date Time Temp Pulse Resp B/P (MAP) Pulse Ox O2 Delivery O2 Flow Rate FiO2 07/08/19 14:00 98.6 70 17 139/62 (87) 100 I&O- Last 24 Hours up to 6 AM 07/08/19 06:00 Intake Total 860 ml Output Total 200 ml Balance 660 ml CHEL [facility] [employer]QU[employer] MECH[employer]IC Jul 08, 2019 15:52
[2019-07-08] MEDS ORDERED: FUROSEMIDE 40 MG TAB PO ONE (16:00)
[2019-07-08] MEDS ORDERED: DOXY100T PO (16:51)
[2019-07-08] MEDS ORDERED: GUAI20TA PO (16:51)
[2019-07-08 20:00] VITALS: BP 160/70
[2019-07-08] MEDS: SENNA 8.6 MG TAB (SENOKOT) PO SCH (20:16)
[2019-07-08] MEDS: traZODone 50 MG TAB PO SCH (20:17)
[2019-07-09 05:54] VITALS: BP 150/70
[2019-07-09 06:52] LABS: HEMATOCRIT 35.1 % (42.0-52.0); HEMOGLOBIN 12.2 g/dl (13.5-17.5); MEAN CORPUSCULAR HEMOGLOBIN 31.2 pg (27.0-33.0); MEAN CORPUSCULAR HGB CONC 34.8 g/dl (32.0-36.5); MEAN CORPUSCULAR VOLUME 89.8 fl (80.0-96.0); PLATELET COUNT, AUTOMATED 217 10^3/uL (150-450); RED BLOOD COUNT 3.91 10^6/uL (4.30-6.10); WHITE BLOOD COUNT 8.9 10^3/uL (4.0-10.0)
[2019-07-09 07:26] LABS: ALT/SGPT 29 U/L (12-78); BILIRUBIN,TOTAL 0.3 MG/DL (0.2-1.0); BLOOD UREA NITROGEN 18 MG/DL (7-18); CALCIUM LEVEL 8.7 MG/DL (8.8-10.2); CARBON DIOXIDE LEVEL 29 MEQ/L (21-32); CHLORIDE LEVEL 102 MEQ/L (98-107); CREATININE FOR GFR 0.98 MG/DL (0.70-1.30); GLOMERULAR FILTRATION RATE > 60.0 (>42); GLUCOSE, FASTING 103 MG/DL (70-100); MAGNESIUM LEVEL 1.5 MG/DL (1.8-2.4); POTASSIUM SERUM 3.8 MEQ/L (3.5-5.1); SODIUM LEVEL 139 MEQ/L (136-145); TOTAL PROTEIN 6.3 GM/DL (6.4-8.2)
[2019-07-09] MEDS: IPRATROPIUM 0.5MG/ALBUTEROL 2.5MG INH SOL UD 3ML (DUONEB)(J7620) NEB SCH (08:12)
[2019-07-09] MEDS: ATORVASTATIN 20 MG TAB PO SCH (08:17)
[2019-07-09] MEDS: FLUoxetine 20 MG CAP PO SCH (08:17)
[2019-07-09] MEDS: APIXABAN 5 MG TAB (ELIQUIS) PO SCH (08:17)
[2019-07-09] MEDS: oxyBUTYnin *DITROPAN XL* 5 MG TABCR PO SCH (08:17)
[2019-07-09] MEDS: DOXYCYCLINE HYCLATE 100 MG TAB PO SCH (08:17)
[2019-07-09] MEDS: LORATADINE 10 MG TAB PO SCH (08:17)
[2019-07-09] MEDS: guaiFENesin 200 MG TAB PO SCH (08:17)
[2019-07-09 08:18] VITALS: BP 150/70
[2019-07-09] MEDS: FLUTICASONE PROP 0.05% NASAL SPRAY 16 GM (FLONASE) NARES SCH (08:18)
[2019-07-09] MEDS: METOPROLOL SUCC (TopROL XL) 50MG **XL** TAB PO SCH (08:18)
[2019-07-09] MEDS: DOCUSATE SODIUM 100 MG CAP PO SCH (08:18)
[2019-07-09] MEDS ORDERED: MAGN400T2 PO (09:54)
[2019-07-09] MEDS ORDERED: MAG SULF 1GM/100ML (MAG RUN) 1 GM in APPROPRIATE DILUENT 1 EA IV ONE (10:00)
[2019-07-09] MEDS ORDERED: LASI20TA3 PO (12:01)
--- NOTE | 2019-07-09 12:07 | IPNPDOC ---
Text Note Date of Service The patient was seen on 07/09/19. NOTE Subjective: symptoms greatly improved today. no further urge incontinence. denies chest pain, denies SOB Objective GENERAL: up to chair at bedside, NAD SKIN : Warm, dry intact HEENT: Atraumatic, normocephalic, moist mucous membrane CARDIOVASCULAR: irregular rate and rhythm, S1S2, no JVD, no edema, distal pulses + palpable RESP: CTAB, no accessory muscle use noted ABDOMEN: BS+ non distended non tender MS: no joint deformities NEURO: Alert and oriented x 3,,facial droop PSYCH: no anxiety or agitation, appropriate mood and affect. ASSESSMENT/PLAN: Acute Intracranial Hemorrhage -With left-sided weakness -improving with rehabilitation per primary team Cough/Congestion -chest x-ray was negative for acute cardiopulmonary process -continued on antibiotic therapy with Doxycyline -continue loratadine, Flonase -continue lasix at discharge Urge incontinence -continue Oxybutynin Chronic Atrial Fibrillation -rate controlled, -continue Toprol -anticoagulation therapy with Eliquis Cardiomyopathy of unclear etiology, EF 40-45% - referral to cardiology for ischemic evaluation at discharge Hypertension -stable, controlled DVT prophylaxis -fully anticoagulated on Eliquis VS,Fishbone, I+O VS, Fishbone, I+O Laboratory Tests 07/09/19 06:18 Red Blood Count 3.91 L, Mean Corpuscular Volume 89.8, Mean Corpuscular Hemoglobin 31.2, Mean Corpuscular Hemoglobin Concent 34.8, Red Cell Distribution Width 12.3, Calcium Level 8.7 L, Aspartate Amino Transf (AST/SGOT) 16, Alanine Aminotransferase (ALT/SGPT) 29, Alkaline Phosphatase 61, Total Bilirubin 0.3, Total Protein 6.3 L, Albumin 3.0 L Vital Signs Date Time Temp Pulse Resp B/P (MAP) Pulse Ox O2 Delivery O2 Flow Rate FiO2 07/09/19 08:18 77 150/70 07/09/19 05:54 97.6 18 97 I&O- Last 24 Hours up to 6 AM 07/09/19 06:00 Intake Total 960 ml Output Total 0 ml Balance 960 ml CHEL [facility] Jul 09, 2019 12:07
== END 2019-07-09 14:10 | disposition home health service (06) | DRG 57 ==
LOC: M PM&R 14:27
PROVIDERS: ADMIT Physical Medicine & Rehabilitation; ATTEND Physical Medicine & Rehabilitation
DX: I69.354 Hemiplegia and hemiparesis following cerebral infarction affecting left non-dominant side (principal); I50.22 Chronic systolic (congestive) heart failure; I42.9 Cardiomyopathy, unspecified; I11.0 Hypertensive heart disease with heart failure; I69.391 Dysphagia following cerebral infarction; R13.10 Dysphagia, unspecified; Z87.891 Personal history of nicotine dependence; Z79.82 Long term (current) use of aspirin; Z79.899 Other long term (current) drug therapy; I48.2 Chronic atrial fibrillation; R32 Unspecified urinary incontinence

== ENCOUNTER → 2019-07-30 | Outpatient (CLI) | payer MEDICARE, BC ==
[~2019-07-30] MED LIST: ASPI81CH33 PO; ATOR40TA75 PO; CVS50CAP PO; DITR5TAB PO; DOXY100T PO; ELIQ5TAB PO; FLUO20CA19 PO; GUAI20TA PO; LASI20TA3 PO; LOVE1INJ SC; MAGN400T2 PO; METO1TAB32 PO; RA S8.6T3 PO
[2019-07-30 13:19] LABS: BLOOD UREA NITROGEN 24 MG/DL (7-18); CALCIUM LEVEL 9.5 MG/DL (8.8-10.2); CARBON DIOXIDE LEVEL 29 MEQ/L (21-32); CHLORIDE LEVEL 106 MEQ/L (98-107); CREATININE FOR GFR 1.18 MG/DL (0.70-1.30); GLOMERULAR FILTRATION RATE > 60.0 (>42); GLUCOSE, FASTING 100 MG/DL (70-100); POTASSIUM SERUM 4.3 MEQ/L (3.5-5.1); SODIUM LEVEL 141 MEQ/L (136-145)
== END ==
LOC: M LAB 12:21
DX: I10 Essential (primary) hypertension (principal)

== ENCOUNTER 2023-05-26 14:46 | Emergency (ER) | payer MEDICARE, BC ==
[~2023-05-26] VITALS: Ht 177.8 cm; Wt 59.1 kg
[~2023-05-26 14:46] MED LIST changes: -FLUO20CA19 PO; +FLUO20CA22 PO
[2023-05-26 14:50] VITALS: TEMP 97.9
[2023-05-26 20:44] VITALS: BP 160/98; O2SAT 99
== END 2023-05-26 20:47 | disposition home or self-care (01) ==
LOC: M ED 14:46
DX: M66.0 Rupture of popliteal cyst (principal); I48.91 Unspecified atrial fibrillation; I10 Essential (primary) hypertension; Z86.73 Personal history of transient ischemic attack (TIA), and cerebral infarction without residual deficits; Z87.891 Personal history of nicotine dependence; Z79.899 Other long term (current) drug therapy; Z79.01 Long term (current) use of anticoagulants